=== PATIENT | male | born 1940 | race Caucasian/White ===

== ENCOUNTER 2016-09-05 00:26 | Day surgery (SDC) | payer MEDICARE, OTHER ==
[2016-09-05] VITALS (17 sets, daily range): BP systolic 118–146; BP diastolic 68–93; PULSE 64–78; RESP 9–22; O2SAT 93–98
[~2016-09-05] VITALS: Ht 184.2 cm; Wt 85.9 kg
[~2016-09-05 00:26] MED LIST: APIX5TAB PO; CETI10CA PO; CHOL200049 PO; LEVO25TA5 PO; MAGN400C PO; MELA3TAB35 PO; METO25TA99 PO; OMEP20CA11 PO; SALM1CAP4 PO; TAMS0.4C98 PO; TRIA60LO3 TOP; VIT1TABL83 PO; ZLP5T PO
[2016-09-05] MEDS ORDERED: 0.9% Sodium Chloride 1,000 ML IV SCH (07:40)
[2016-09-05 10:40] LABS: BASOPHILS % (AUTO) 0.6 % (0-3); EOSINOPHILS % (AUTO) 1.9 % (0-5); MONOCYTES % (AUTO) 12.2 % (4-12); Mean Corpuscular Volume 84.1 fL (81-100); NEUTROPHILS % (AUTO) 61.3 % (40-74); Platelet Count 147 bil/L (150-400)
[2016-09-05 11:02] LABS: INR 1.01 ratio
[2016-09-05] MEDS ORDERED: 0.9% Sodium Chloride 1,000 ML ONE (11:14)
[2016-09-05] MEDS ORDERED: Heparin 1,000 Unit/mL 10 mL Inj ONE (11:14)
[2016-09-05] MEDS ORDERED: Heparin 10,000 Unit/1,000 mL NS Premix IV ONE (11:14)
[2016-09-05] MEDS ORDERED: fentaNYL-PF 50 mCg/mL 2 mL Inj ONE ×3 (11:46→13:05)
[2016-09-05] MEDS ORDERED: HYDROcodone-APAP 5-325 mg Tablet PO PRN (14:15)
[2016-09-05] MEDS ORDERED: Ondansetron 2 mg/mL 2 mL Inj IVPUSH PRN (14:15)
--- NOTE | 2016-09-05 15:24 | PROCED ---
[address] [address] PROCEDURE NOTE PATIENT: ELVA CURIEL : 1940 MR#: [id number] ADMIT: 09/05/2016 JOB ID: [id number] DATE OF SERVICE: 09/05/2016 PREOPERATIVE DIAGNOSIS(ES): Paroxysmal drug refractory atrial flutter. POSTOPERATIVE DIAGNOSIS(ES): Paroxysmal drug refractory atrial flutter. PROCEDURES PERFORMED: 1. Comprehensive electrophysiology study with left atrial pacing and recording via the coronary sinus catheter. 2. Three-dimensional electroanatomic mapping using the CARTO 3 system. 3. Atrial flutter ablation (atrial ablation; cavotricuspid isthmus ablation). 4. Fluoroscopy. SURGEON: Everardo Richardson M.D., electrophysiology attending. REPACKER: Zi Hurd PA-C ANESTHESIA: Bolus dosing of Versed and fentanyl utilized to achieve an adequate level of sedation. INDICATION: The patient is a pleasant 76-year-old man with preserved LV function paroxysmal drug refractory atrial flutter. After discussion of risks and benefits of catheter based mapping and ablation, he opted to proceed. PROCEDURAL DESCRIPTION: Following informed signed consent, the patient was taken to the EP laboratory in a fasting, nonsedated state where he was prepped and draped in a sterile fashion. The right inguinal region infiltrated with 1% lidocaine. Then, using modified Seldinger technique, one 8 and two 7-Zambian sheaths were inserted into the right femoral vein. Under fluoroscopic guidance, a deflectable decapolar catheter was advanced to the coronary sinus with most proximal bipoles at the os of the sinus. A 20 pole Livewire catheter was advanced into the right atrium and used to encircle the tricuspid anulus. The patient was in and out of typical atrial flutter during the case, but ultimately reverted back to sinus rhythm spontaneously A J curve Smart Touch irrigated ablation catheter was brought to the field using a three-dimensional electroanatomic map using the CARTO 3 system. A linear series of ablations was performed from the ventricular to the IVC aspect of the isthmus while pacing from the coronary sinus os and monitoring the atrial activation pattern on the Livewire catheter. Catheter stability was suboptimal both due to the shape of the patient's isthmus as well as excess patient movement and discomfort. Ultimately medial to lateral block was confirmed. I did have to redeploy the ablation catheter through an SRO long sheath after exchanging over a long wire, the 8-Zambian short sheath. Lateral to medial block was confirmed. A 20-30 minute waiting period was undertaken during which bidirectional block was confirmed. All catheters and sheaths were removed. Manual pressure was held for hemostasis. The patient was transferred to the [facility] for monitoring and bedrest. COMPLICATIONS: None. ESTIMATED BLOOD LOSS: Negligible. FINDINGS: 1. Baseline rhythm is sinus with an RR interval of 768 msec, IL 178 msec, QRS 80 msec, QT 376 msec. 2. Retrograde conduction: No VA conduction was seen. 3. Intracardiac intervals: AH interval 94 msec, HV 50 msec. 4. Cavotricuspid isthmus ablation as described above with bidirectional block, specifically transisthmus time is 1:36 msec in both directions. IMPRESSION: Successful cavotricuspid isthmus ablation. PLAN: 1. Bed rest x 4 hours. 2. Continue anticoagulation and beta blockade. 3. Initiate flecainide if the patient's atrial fibrillation surfaces. 4. Monitoring overnight with discharge tomorrow. 5. Followup with Zi Hurd PA-C in clinic in four weeks. ATTENDING STATEMENT: Everardo Richardson M.D., electrophysiology attending, was present for and supervised/performed all aspects of this procedure.
[2016-09-05] MEDS: MeTOProlol XL 25 mg ER24 Tablet PO SCH (22:38)
[2016-09-06 05:29] VITALS: BP 148/85; PULSE 68; RESP 18; O2SAT 95
[2016-09-06] MEDS ORDERED: Pantoprazole 20 mg ER24 Tablet PO SCH (06:30)
--- NOTE | 2016-09-06 08:14 | PCM.DIMED ---
Discharge Instructions Date of Service Sep 06, 2016 Dates of Hospitalization Discharge Diagnosis Discharge Diagnosis Atrial Flutter Hypertension Diet Discharge Diet: Heart Healthy Activity Discharge Activity: Other (Do not sit in a bath tub, hot tub or pool for one week. Do not lift, push or pull more than 10 lbs for one week.) Call your provider Call your provider for: Fever or Chills, Bleeding, Excessive diarrhea, Weakness (unilateral) Patient Instructions Mid-level Provider (F9): Zi Hurd PA-C Follow-up with Mid-level in: 4 weeks Zi Hurd PA-C Sep 06, 2016 08:13
[2016-09-06] MEDS ORDERED: Vitamin B Complex/Vit C Tablet PO SCH (08:30)
[2016-09-06] MEDS ORDERED: Omega-3-Acid Ethyl Esters 1 Gm Capsule PO SCH (08:30)
[2016-09-06] MEDS: MeTOProlol XL 25 mg ER24 Tablet PO SCH (08:43)
--- NOTE | 2016-09-06 09:04 | DIS ---
[address] [address] DISCHARGE SUMMARY PATIENT: ELVA CURIEL : 1940 MR#: [id number] ADMIT: 09/05/2016 JOB ID: [id number] DIS: 09/06/2016 REASON FOR ADMISSION: Persistent atrial flutter. CHIEF COMPLAINT: Fatigue and elevated heart rate with palpitations. BRIEF HISTORY: The patient is a pleasant 76-year-old man with a structurally normal heart who has had persistent atrial flutter for some time now. This arrhythmia was discovered a few years ago during an exercise treadmill. He has most often been recorded with atrial flutter but there have been periods of disorganized atrial fibrillation as well. These have self-terminated. He wished for a permanent fix of the flutter. COURSE IN HOSPITAL: The patient was admitted through the [facility] and taken to the botany laboratory assistant for an atrial flutter procedure. This was undertaken and accomplished without incident and afterward he was transferred back to the [facility] for recovery from sedation. Later he was transferred upstairs for overnight observation as he lives alone and has no transportation, but must drive himself home in the morning. He could not do so after sedation. In the morning he felt well and was ambulatory without difficulty. He had had no bleeding and the right femoral access site was dry and there was no hematoma. ECG rhythm remained sinus rhythm. DISPOSITION: The patient was discharged home in good condition with a follow up appointment at the [facility] Card[facility] office in one month. To prevent bleeding, he was asked not to lift, push or pull more than 10 pounds for five days, and to prevent infection, he was asked not to sit in a bathtub, hot tub or pool for five days. Take medications as prescribed and follow his heart healthy diet. DISCHARGE MEDICATIONS: 1. Eliquis 5 mg b.i.d. 2. Zyrtec 10 mg q.h.s. 3. Vitamin D3 2000 units daily. 4. Levothyroxine 25 mcg daily. 5. Magnesium oxide 400 mg daily. 6. Melatonin 3 mg q.h.s. 7. Metoprolol succinate 37.5 mg b.i.d. 8. Omeprazole 20 mg daily. 9. Aragon oil gel cap, 1 daily. 10. Tamsulosin 0.4 mg, 2 tablets daily. 11. Triamcinolone acetonide lotion applied topically b.i.d. 12. Vitamin D 3 and C with iron tablet 1 daily. 13. Ambien 5 mg q.h.s. p.r.n. insomnia. FINAL DIAGNOSES: 1. Atrial flutter. 2. Hypertension. 3. Atrial fibrillation.
== END 2016-09-06 09:25 | disposition home or self-care (01) ==
LOC: SOUO 00:26 → MPC 16:40 → SOUO 09-06 09:25
PROVIDERS: ATTEND Internal Medicine Cardiovascular Disease
DX: I48.3 Typical atrial flutter (principal); I10 Essential (primary) hypertension; I48.0 Paroxysmal atrial fibrillation; N40.1 Benign prostatic hyperplasia with lower urinary tract symptoms; Z79.01 Long term (current) use of anticoagulants